=== PATIENT | male | born 1995 | race Caucasian/White ===

== ENCOUNTER 2016-09-17 14:51 | Emergency (ER) | payer OTHER ==
[~2016-09-17] VITALS: Ht 170.1 cm; Wt 113.4 kg
[~2016-09-17 14:51] MED LIST: ALBUTEROL0.09 MG/A2 IH; BACTRIM DS 8001 TA1 PO; CILOXAN 5 ML5 M1 OP; CILOXAN 5 ML5 M1 OT; CILOXAN 5 ML5 ML OPH; FLEXERIL5 MG PO; IBU-8800 MG PO; IBU800 MG PO; IBUPROFEN200 M2 PO; KEFLEX500 M1 PO; KEFLEX500 MG PO; KEFTAB500 MG PO; LOMOTIL 0.025 M1 TA1 PO; MOTRIN800 MG PO; NAPROSYN500 MG PO; NKHM; OMNICEF300 MG PO; PREDNISONE20 M1 PO; SINGULAIR10 MG PO; TOBREX 5 ML5 M1 OP; VICODIN 5/500 505 MG PO; ZOFRAN ODT4 MG SL; ZOFRAN4 MG PO
[2016-09-17 15:51] VITALS: BP 138/70
[2016-09-17 16:16] LABS: BASO # 0.1 10*3/uL (0.0-0.1); BASO % 0.7 % (0.0-1.0); EOS # 0.2 10*3/uL (0.0-0.4); EOS % 2.6 % (1.0-4.0); HEMATOCRIT 41.4 % (42.0-52.0); HEMOGLOBIN 14.3 g/dl (14.0-18.0); LYMPH # 3.4 10*3/uL (1.3-4.4); LYMPH % 40.7 % (27.0-41.0); MEAN CELL VOLUME 83.6 fl (80.0-94.0); MEAN CORPUSCULAR HGB 28.9 pg (27.0-31.0); MEAN CORPUSCULAR HGB CONC 34.5 g/dl (33.0-37.0); MEAN PLATELET VOLUME 9.5 fl (9.6-12.3); MONO % 12.4 % (3.0-9.0); NEUT # 3.6 10*3/uL (2.3-7.9); NEUT % 43.4 % (47.0-73.0); PLATELET COUNT AUTOMATED 239 10*3/uL (130-400); RED BLOOD COUNT 4.95 10*6/uL (4.50-5.90); RED CELL DISTRI WIDTH 13.1 % (0-14.5); WHITE BLOOD COUNT 8.4 10*3/uL (4.8-10.8)
[2016-09-17 16:27] LABS: CHLORIDE 106 mmol/L (98-107); POTASSIUM 3.9 mmol/L (3.5-5.1); SODIUM 137 mmol/L (136-145)
[2016-09-17 16:43] LABS: BUN 14 mg/dl (7-24); CARBON DIOXIDE 27 mmol/L (21-32); EST GLOM FILT AFRICAN AMERICAN > 60 ml/min; GLUCOSE 93 mg/dL (65-99); URIC ACID 6.9 mg/dL (3.5-7.2)
[2016-09-17] MEDS ORDERED: CEPHALEXIN500 M1 PO (17:26)
[2016-09-17] MEDS ORDERED: ATHLETE'S FOOT1% TP (17:26)
== END 2016-09-17 17:40 | disposition home or self-care (01) ==
LOC: ED 14:51
PROVIDERS: Physician Assistant
DX: L03.115 Cellulitis of right lower limb (principal); L03.116 Cellulitis of left lower limb; B35.3 Tinea pedis; F17.200 Nicotine dependence, unspecified, uncomplicated

== ENCOUNTER → 2016-10-04 | Outpatient (CLI) | payer OTHER ==
[~2016-10-04] MED LIST changes: +ATHLETE'S FOOT1% TP; +CEPHALEXIN500 M1 PO; +CORTISPORIN SUS10 ML OT
[2016-10-04 13:26] LABS: BASO # 0.1 10*3/uL (0.0-0.1); BASO % 0.5 % (0.0-1.0); EOS # 0.2 10*3/uL (0.0-0.4); EOS % 2.2 % (1.0-4.0); HEMATOCRIT 40.8 % (42.0-52.0); HEMOGLOBIN 14.1 g/dl (14.0-18.0); LYMPH # 2.5 10*3/uL (1.3-4.4); LYMPH % 24.4 % (27.0-41.0); MEAN CELL VOLUME 82.9 fl (80.0-94.0); MEAN CORPUSCULAR HGB 28.7 pg (27.0-31.0); MEAN CORPUSCULAR HGB CONC 34.6 g/dl (33.0-37.0); MEAN PLATELET VOLUME 9.9 fl (9.6-12.3); MONO # 1.2 10*3/uL (0.1-1.0); MONO % 11.5 % (3.0-9.0); NEUT # 6.1 10*3/uL (2.3-7.9); NEUT % 61.1 % (47.0-73.0); PLATELET COUNT AUTOMATED 247 10*3/uL (130-400); RED BLOOD COUNT 4.92 10*6/uL (4.50-5.90); WHITE BLOOD COUNT 10.1 10*3/uL (4.8-10.8)
[2016-10-04 13:56] LABS: ALBUMIN 3.8 gm/dl (3.1-4.5); ALKALINE PHOSPHATASE 83 U/L (45-117); BILIRUBIN, TOTAL 0.5 mg/dl (0.2-1.0); BUN 15 mg/dl (7-24); CARBON DIOXIDE 26 mmol/L (21-32); CHLORIDE 107 mmol/L (98-107); CHOLESTEROL 181 mg/dL (<200); CPK 56 U/L (39-308); EST GLOM FILT AFRICAN AMERICAN > 60 ml/min; GLUCOSE 88 mg/dL (65-99); HDL CHOLESTEROL 44 mg/dl (40-60); LDL CHOLESTEROL 122 mg/dL (9-159); POTASSIUM 3.9 mmol/L (3.5-5.1); SGOT/AST 13 IU/L (3-35); SGPT/ALT 30 U/L (12-78); SODIUM 140 mmol/L (136-145); TOTAL PROTEIN 7.8 gm/dL (6.4-8.2); TRIGLYCERIDES 75 mg/dl (<150); VLDL CHOLESTEROL 15 mg/dL (6-40)
[2016-10-04 14:18] LABS: VITAMIN D, 25-HYDROXY 22.4 ng/mL (30-100)
[2016-10-05 17:09] LABS: CREATININE, RANDOM URINE 158.7 mg/dL (Not Estab.)
== END | disposition home or self-care (01) ==
LOC: LAB 12:56
PROVIDERS: Pediatrics
DX: I10 Essential (primary) hypertension (principal)

== ENCOUNTER 2016-10-05 16:51 | Emergency (ER) | payer OTHER ==
[~2016-10-05] VITALS: Ht 170.1 cm; Wt 113.4 kg
[~2016-10-05 16:51] MED LIST changes: -CORTISPORIN SUS10 ML OT
[2016-10-05 17:16] VITALS: BP 174/93
[2016-10-05] MEDS ORDERED: CORTISPORIN SUS10 ML OT (18:04)
== END 2016-10-05 19:15 | disposition home or self-care (01) ==
LOC: ED 16:51
DX: H60.501 Unspecified acute noninfective otitis externa, right ear (principal); R03.0 Elevated blood-pressure reading, without diagnosis of hypertension; F17.200 Nicotine dependence, unspecified, uncomplicated

== ENCOUNTER 2017-07-11 20:53 | Emergency (ER) | payer BC ==
[~2017-07-11] VITALS: Ht 170.1 cm; Wt 113.4 kg
[~2017-07-11 20:53] MED LIST changes: +CORTISPORIN SUS10 ML OT
[2017-07-11 20:59] VITALS: BP 157/92
[2017-07-11 21:21] LABS: BASO % 0.2 % (0.0-1.0); EOS # 0.2 10*3/uL (0.0-0.4); EOS % 3.6 % (1.0-4.0); HEMATOCRIT 43.4 % (42.0-52.0); HEMOGLOBIN 15.2 g/dl (14.0-18.0); LYMPH # 1.9 10*3/uL (1.3-4.4); LYMPH % 45.8 % (27.0-41.0); MEAN CORPUSCULAR HGB 29.1 pg (27.0-31.0); MEAN PLATELET VOLUME 10.2 fl (9.6-12.3); MONO # 0.8 10*3/uL (0.1-1.0); MONO % 18.7 % (3.0-9.0); NEUT # 1.3 10*3/uL (2.3-7.9); NEUT % 31.5 % (47.0-73.0); PLATELET COUNT AUTOMATED 181 10*3/uL (130-400); RED BLOOD COUNT 5.23 10*6/uL (4.50-5.90); RED CELL DISTRI WIDTH 13.4 % (0-14.5); WHITE BLOOD COUNT 4.2 10*3/uL (4.8-10.8)
[2017-07-11 21:32] LABS: BUN 15 mg/dl (7-24); CHLORIDE 104 mmol/L (98-107); CREATININE 0.89 mg/dL (0.70-1.30); POTASSIUM 4.1 mmol/L (3.5-5.1); SODIUM 139 mmol/L (136-145)
[2017-07-11] MEDS ORDERED: ROBITUSSIN DM3840 ML PO (22:46)
[2017-07-11] MEDS ORDERED: TAMIFLU 75MG CA75 MG PO (22:46)
[2017-07-11 22:51] LABS: BILIRUBIN NEGATIVE (NEGATIVE); BLOOD NEGATIVE (NEGATIVE); CLARITY SL CLOUDY (CLEAR); COLOR YELLOW (YELLOW); GLUCOSE NEGATIVE (NEGATIVE); KETONE NEGATIVE (NEGATIVE); LEUKO ESTERASE NEGATIVE (NEGATIVE); NITRITE NEGATIVE (NEGATIVE); PH 5.5 (5.0-9.0); SPECIFIC GRAVITY >= 1.030 (1.005-1.030); UROBILINOGEN 0.2 E.U./dl (0.2-1.0)
[2017-07-11] MEDS ORDERED: ZOFRAN ODT4 MG SL (22:55)
[2017-07-11 22:58] LABS: BACTERIA TRACE; EPITHELIAL CELLS 0-2
== END 2017-07-11 23:30 | disposition home or self-care (01) ==
LOC: ED 20:53
PROVIDERS: Emergency Medicine Emergency Medical Services
DX: J40 Bronchitis, not specified as acute or chronic (principal); J10.1 Influenza due to other identified influenza virus with other respiratory manifestations; F17.200 Nicotine dependence, unspecified, uncomplicated; Z98.890 Other specified postprocedural states

== ENCOUNTER 2018-04-26 19:36 | Emergency (ER) | payer BC ==
[~2018-04-26] VITALS: Ht 167.6 cm; Wt 122.5 kg
[~2018-04-26 19:36] MED LIST changes: +ROBITUSSIN DM3840 ML PO; +TAMIFLU 75MG CA75 MG PO
[2018-04-26 19:38] VITALS: BP 130/68
[2018-04-26] MEDS ORDERED: AMOXICILLIN500 M2 PO (20:59)
[2018-04-26] MEDS ORDERED: TESSALON PERLE100 M1 PO (20:59)
[2018-04-26] MEDS ORDERED: PREDNISONE50 MG PO (20:59)
== END 2018-04-26 21:40 | disposition home or self-care (01) ==
LOC: ED 19:36
DX: J20.9 Acute bronchitis, unspecified (principal); R19.7 Diarrhea, unspecified; F17.200 Nicotine dependence, unspecified, uncomplicated

== ENCOUNTER 2018-06-02 12:15 | Emergency (ER) | payer BC ==
[~2018-06-02] VITALS: Ht 167.6 cm; Wt 122.5 kg
[~2018-06-02 12:15] MED LIST changes: +AMOXICILLIN500 M2 PO; +PREDNISONE50 MG PO; +TESSALON PERLE100 M1 PO
[2018-06-02 12:17] VITALS: BP 152/71
== END 2018-06-02 13:10 | disposition home or self-care (01) ==
LOC: ED 12:15
DX: M79.604 Pain in right leg (principal); W01.198A Fall on same level from slipping, tripping and stumbling with subsequent striking against other object, initial encounter; Y93.89 Activity, other specified; Y92.89 Other specified places as the place of occurrence of the external cause; Y99.8 Other external cause status

== ENCOUNTER 2018-12-30 12:59 | Emergency (ER) | payer BC ==
[~2018-12-30] VITALS: Ht 167.6 cm; Wt 113.4 kg
[2018-12-30 13:01] VITALS: BP 158/84
[2018-12-30] MEDS ORDERED: MUCINEX DM 30/61 TAB PO (14:12)
[2018-12-30] MEDS ORDERED: AUGMENTIN 875875 MG PO (14:12)
== END 2018-12-30 14:39 | disposition home or self-care (01) ==
LOC: ED 12:59
DX: J01.90 Acute sinusitis, unspecified (principal); B96.89 Other specified bacterial agents as the cause of diseases classified elsewhere; F17.200 Nicotine dependence, unspecified, uncomplicated

== ENCOUNTER → 2019-03-02 | Outpatient (CLI) | payer BC ==
[~2019-03-02] MED LIST changes: +AUGMENTIN 875875 MG PO; +MUCINEX DM 30/61 TAB PO
== END | disposition home or self-care (01) ==
LOC: CT 04:53
DX: J40 Bronchitis, not specified as acute or chronic (principal); R09.89 Other specified symptoms and signs involving the circulatory and respiratory systems

== ENCOUNTER → 2019-03-03 | Outpatient (CLI) | payer BC ==
--- NOTE | ~2019-03-03 | PF ---
[place], [place] PULMONARY FUNCTION TEST [id number] UN[facility] #: [id number] ROOM: DOCTOR: MARY NEVES MD,FELIPE BIRTHDATE: [birth year] DOS: 03/03/2019 PROCEDURE: Pulmonary function test. ORDERED BY: Yoan Ho. HISTORY: The patient is a 24-year-old male, height of 66 inches, weight of 280 pounds with a diagnosis of bronchitis. Tobacco use noted 1 pack of cigarettes per day for 7 years. SPIROMETRY: The FVC 4.81 liters at 104% predicted value. The FEV1 was 4.09 liters as 85% predicted value. The ratio of FEV1/FVC post-bronchodilator, there were no improvement noted in FEV1 or FVC. Flow volume loop was noted as normal. LUNG VOLUME: Thoracic gas volume recorded as 71%, residual volume 76%, total lung capacity 97%. The patient had resistance and passive conductance noted abnormal, partial improvement post-bronchodilators. Lung diffusion recorded 127%. FINAL IMPRESSION: Finding would be considered consistent with mild reversible obstructive lung disease, bronchial asthma. Clinical correlation would be advised. FELIPE HERNANDEZ MD CM:PFREPORT:PULMONARY FUNCTION TEST [id number] FELIPE NEVES MD
== END | disposition home or self-care (01) ==
LOC: CP 03-02 00:16
DX: J40 Bronchitis, not specified as acute or chronic (principal)

== ENCOUNTER 2019-12-12 19:37 | Emergency (ER) | payer OTHER, BC ==
[~2019-12-12] VITALS: Ht 167.6 cm; Wt 127.0 kg
[2019-12-12 19:45] VITALS: BP 152/94
== END 2019-12-12 21:55 | disposition home or self-care (01) ==
LOC: ED 19:37
DX: S63.502A Unspecified sprain of left wrist, initial encounter (principal); Z79.899 Other long term (current) drug therapy; V43.52XA Car driver injured in collision with other type car in traffic accident, initial encounter; Y93.89 Activity, other specified; Y92.89 Other specified places as the place of occurrence of the external cause; Y99.8 Other external cause status

== ENCOUNTER 2019-12-21 08:43 | Emergency (ER) | payer BC ==
[~2019-12-21] VITALS: Ht 170.1 cm; Wt 127.0 kg
[2019-12-21 08:43] VITALS: BP 148/89
[2019-12-21 09:22] LABS: BASO # 0.1 10*3/uL (0.0-0.1); BASO % 0.5 % (0.0-1.0); EOS # 0.2 10*3/uL (0.0-0.4); EOS % 2.1 % (1.0-4.0); HEMATOCRIT 42.6 % (42.0-52.0); LYMPH % 28.9 % (27.0-41.0); MEAN CELL VOLUME 84.5 fl (80.0-94.0); MEAN CORPUSCULAR HGB CONC 33.1 g/dl (33.0-37.0); MEAN PLATELET VOLUME 9.7 fl (9.6-12.3); MONO % 9.3 % (3.0-9.0); PLATELET COUNT AUTOMATED 279 10*3/uL (130-400); RED BLOOD COUNT 5.04 10*6/uL (4.50-5.90); RED CELL DISTRI WIDTH 13.7 % (0-14.5); WHITE BLOOD COUNT 10.2 10*3/uL (4.8-10.8)
[2019-12-21 09:38] LABS: ALBUMIN 3.8 gm/dl (3.1-4.5); ALKALINE PHOSPHATASE 81 U/L (45-117); BUN 14 mg/dl (7-24); CHLORIDE 106 mmol/L (98-107); CREATININE 0.91 mg/dL (0.70-1.30); LIPASE 49 U/L (73-393); POTASSIUM 3.9 mmol/L (3.5-5.1); SGOT/AST 18 IU/L (3-35); SGPT/ALT 45 U/L (12-78); SODIUM 138 mmol/L (136-145); TOTAL PROTEIN 7.6 gm/dL (6.4-8.2)
[2019-12-21] MEDS ORDERED: NAPROSYN500 MG PO (11:28)
[2019-12-21] MEDS ORDERED: FLOMAX0.4 MG PO (11:28)
[2019-12-21] MEDS ORDERED: TYLENOL325 M1 PO (11:28)
[2019-12-21] MEDS ORDERED: REGLAN10 M1 PO (11:28)
[2019-12-21 11:44] LABS: BILIRUBIN NEGATIVE (NEGATIVE); BLOOD 3+ (NEGATIVE); CLARITY CLOUDY (CLEAR); COLOR BROWN (YELLOW); GLUCOSE NEGATIVE (NEGATIVE); KETONE NEGATIVE (NEGATIVE); LEUKO ESTERASE NEGATIVE (NEGATIVE); NITRITE NEGATIVE (NEGATIVE)
[2019-12-21 11:46] LABS: RBC TNTC rbc/hpf (0-2)
[2019-12-21 11:47] LABS: BACTERIA 3+
== END 2019-12-21 11:33 | disposition home or self-care (01) ==
LOC: ED 08:43
PROVIDERS: Emergency Medicine
DX: K57.92 Diverticulitis of intestine, part unspecified, without perforation or abscess without bleeding (principal); K80.80 Other cholelithiasis without obstruction; N20.0 Calculus of kidney; R11.2 Nausea with vomiting, unspecified; E66.01 Morbid (severe) obesity due to excess calories; I10 Essential (primary) hypertension; F17.200 Nicotine dependence, unspecified, uncomplicated

== ENCOUNTER → 2020-01-01 | Outpatient (CLI) | payer BC ==
[~2020-01-01] MED LIST changes: +FLOMAX0.4 MG PO; +REGLAN10 M1 PO; +TYLENOL325 M1 PO
== END | disposition home or self-care (01) ==
LOC: US 09:57
DX: R10.11 Right upper quadrant pain (principal)

== ENCOUNTER 2020-01-02 23:30 | Emergency (ER) | payer BC ==
[~2020-01-02] VITALS: Ht 167.6 cm; Wt 127.0 kg
[2020-01-02 23:40] VITALS: BP 137/79
[2020-01-03 01:34] LABS: BILIRUBIN NEGATIVE (NEGATIVE); BLOOD 1+ (NEGATIVE); CLARITY CLEAR (CLEAR); COLOR YELLOW (YELLOW); GLUCOSE NEGATIVE (NEGATIVE); KETONE NEGATIVE (NEGATIVE)
[2020-01-03 01:35] LABS: LEUKO ESTERASE NEGATIVE (NEGATIVE); NITRITE NEGATIVE (NEGATIVE); UROBILINOGEN 0.2 E.U./dl (0.2-1.0)
[2020-01-03 01:56] LABS: MUCOUS TRACE; RBC 16-20 rbc/hpf (0-2)
== END 2020-01-03 02:11 | disposition home or self-care (01) ==
LOC: ED 23:30
PROVIDERS: Emergency Medicine Emergency Medical Services
DX: N23 Unspecified renal colic (principal); I10 Essential (primary) hypertension

== ENCOUNTER → 2020-07-01 | Outpatient (CLI) | payer BC ==
[~2020-07-01] MED LIST changes: +NAPROXEN250 MG PO
== END | disposition home or self-care (01) ==
LOC: COVID19 09:06
PROVIDERS: ATTEND Family Medicine
DX: Z20.822 Contact with and (suspected) exposure to COVID-19 (principal)

== ENCOUNTER 2020-08-03 06:34 | Emergency (ER) | payer BC ==
[~2020-08-03] VITALS: Ht 167.6 cm; Wt 127.0 kg
[~2020-08-03 06:34] MED LIST changes: -NAPROXEN250 MG PO
[2020-08-03 06:50] VITALS: BP 169/90
[2020-08-03 07:49] LABS: BASO # 0.1 10*3/uL (0.0-0.1); BASO % 0.7 % (0.0-1.0); EOS # 1.8 10*3/uL (0.0-0.4); EOS % 15.7 % (1.0-4.0); HEMATOCRIT 43.8 % (42.0-52.0); LYMPH % 35.8 % (27.0-41.0); MEAN CELL VOLUME 83.6 fl (80.0-94.0); MEAN CORPUSCULAR HGB 28.6 pg (27.0-31.0); MEAN CORPUSCULAR HGB CONC 34.2 g/dl (33.0-37.0); MEAN PLATELET VOLUME 9.3 fl (9.6-12.3); MONO % 9.3 % (3.0-9.0); NEUT # 4.3 10*3/uL (2.3-7.9); NEUT % 38.2 % (47.0-73.0); PLATELET COUNT AUTOMATED 285 10*3/uL (130-400); RED BLOOD COUNT 5.24 10*6/uL (4.50-5.90); RED CELL DISTRI WIDTH 13.1 % (0-14.5); WHITE BLOOD COUNT 11.2 10*3/uL (4.8-10.8)
[2020-08-03 08:04] LABS: ALBUMIN 3.9 gm/dl (3.1-4.5); ALKALINE PHOSPHATASE 95 U/L (45-117); BUN 18 mg/dl (7-24); CHLORIDE 108 mmol/L (98-107); CREATININE 1.02 mg/dL (0.70-1.30); POTASSIUM 3.7 mmol/L (3.5-5.1); SGOT/AST 14 IU/L (3-35); SGPT/ALT 42 U/L (12-78); SODIUM 140 mmol/L (136-145); TOTAL PROTEIN 7.8 gm/dL (6.4-8.2)
[2020-08-03 08:05] LABS: BILIRUBIN Negative (Negative); BLOOD 1+ (Negative); CLARITY Clear (Clear); COLOR Yellow (Yellow); GLUCOSE Negative (Negative); KETONE 1+ (Negative); LEUKO ESTERASE Negative (Negative); NITRITE Negative (Negative); SPECIFIC GRAVITY 1.025 (1.001-1.030); UROBILINOGEN 0.2 E.U./dl (0.0-1.0)
[2020-08-03 08:18] LABS: MUCOUS TRACE
[2020-08-03] MEDS ORDERED: FLOMAX0.4 MG PO (08:44)
[2020-08-03] MEDS ORDERED: REGLAN10 M1 PO (08:44)
[2020-08-03] MEDS ORDERED: TYLENOL325 M1 PO (08:44)
[2020-08-03] MEDS ORDERED: NAPROXEN250 MG PO (08:44)
== END 2020-08-03 08:52 | disposition home or self-care (01) ==
LOC: ED 06:34
PROVIDERS: Emergency Medicine
DX: K80.80 Other cholelithiasis without obstruction (principal); N23 Unspecified renal colic; E66.9 Obesity, unspecified; F17.200 Nicotine dependence, unspecified, uncomplicated; Z87.442 Personal history of urinary calculi; Z79.899 Other long term (current) drug therapy

== ENCOUNTER 2021-01-21 06:32 | Emergency (ER) | payer SELFPAY ==
[~2021-01-21] VITALS: Ht 167.6 cm; Wt 136.1 kg
[~2021-01-21 06:32] MED LIST changes: +NAPROXEN250 MG PO
[2021-01-21 06:41] VITALS: BP 145/91
[2021-01-21 07:04] LABS: BASO # 0.1 10*3/uL (0.0-0.1); BASO % 0.9 % (0.0-1.0); EOS # 0.5 10*3/uL (0.0-0.4); EOS % 5.1 % (1.0-4.0); LYMPH # 4.3 10*3/uL (1.3-4.4); LYMPH % 42.7 % (27.0-41.0); MEAN CELL VOLUME 82.8 fl (80.0-94.0); MEAN CORPUSCULAR HGB 28.4 pg (27.0-31.0); MEAN CORPUSCULAR HGB CONC 34.3 g/dl (33.0-37.0); MEAN PLATELET VOLUME 9.8 fl (9.6-12.3); MONO # 1.2 10*3/uL (0.1-1.0); MONO % 12.3 % (3.0-9.0); NEUT # 3.9 10*3/uL (2.3-7.9); NEUT % 38.8 % (47.0-73.0); PLATELET COUNT AUTOMATED 317 10*3/uL (130-400); RED BLOOD COUNT 5.07 10*6/uL (4.50-5.90); RED CELL DISTRI WIDTH 13.6 % (0-14.5); WHITE BLOOD COUNT 10.1 10*3/uL (4.8-10.8)
[2021-01-21 07:21] LABS: ALBUMIN 3.6 gm/dl (3.1-4.5); ALKALINE PHOSPHATASE 74 U/L (45-117); BUN 18 mg/dl (7-24); CHLORIDE 107 mmol/L (98-107); CREATININE 0.95 mg/dL (0.70-1.30); LIPASE 88 U/L (73-393); POTASSIUM 3.6 mmol/L (3.5-5.1); SGOT/AST 20 IU/L (3-35); SGPT/ALT 51 U/L (12-78); SODIUM 139 mmol/L (136-145); TOTAL PROTEIN 7.3 gm/dL (6.4-8.2)
[2021-01-21 09:39] LABS: BILIRUBIN Negative (Negative); BLOOD 3+ (Negative); CLARITY Clear (Clear); COLOR Yellow (Yellow); GLUCOSE Negative (Negative); KETONE Trace (Negative); LEUKO ESTERASE Negative (Negative); NITRITE Negative (Negative); PH 5.5 (4.5-8.0); SPECIFIC GRAVITY 1.025 (1.001-1.030)
[2021-01-21 09:48] LABS: BACTERIA 1+; MUCOUS 1+; RBC 41-50 rbc/hpf (0-2)
== END 2021-01-21 09:23 | disposition home or self-care (01) ==
LOC: ED 06:32
PROVIDERS: Emergency Medicine
DX: K80.80 Other cholelithiasis without obstruction (principal); F17.200 Nicotine dependence, unspecified, uncomplicated

== ENCOUNTER 2021-02-15 09:12 | Emergency (ER) | payer BC ==
[~2021-02-15] VITALS: Ht 167.6 cm; Wt 136.1 kg
[2021-02-15 09:18] VITALS: BP 137/82
[2021-02-15 10:03] LABS: BASO # 0.1 10*3/uL (0.0-0.1); BASO % 0.8 % (0.0-1.0); EOS # 0.2 10*3/uL (0.0-0.4); EOS % 2.8 % (1.0-4.0); HEMATOCRIT 44.8 % (42.0-52.0); LYMPH # 2.8 10*3/uL (1.3-4.4); LYMPH % 37.1 % (27.0-41.0); MEAN CELL VOLUME 84.5 fl (80.0-94.0); MEAN CORPUSCULAR HGB 28.3 pg (27.0-31.0); MEAN CORPUSCULAR HGB CONC 33.5 g/dl (33.0-37.0); MEAN PLATELET VOLUME 9.9 fl (9.6-12.3); MONO # 0.7 10*3/uL (0.1-1.0); MONO % 9.6 % (3.0-9.0); NEUT # 3.7 10*3/uL (2.3-7.9); NEUT % 49.4 % (47.0-73.0); PLATELET COUNT AUTOMATED 242 10*3/uL (130-400); RED CELL DISTRI WIDTH 13.2 % (0-14.5); WHITE BLOOD COUNT 7.5 10*3/uL (4.8-10.8)
[2021-02-15 10:18] LABS: ALBUMIN 3.8 gm/dl (3.1-4.5); ALKALINE PHOSPHATASE 72 U/L (45-117); BUN 13 mg/dl (7-24); CHLORIDE 107 mmol/L (98-107); CREATININE 0.81 mg/dL (0.70-1.30); LIPASE 53 U/L (73-393); POTASSIUM 3.9 mmol/L (3.5-5.1); SGOT/AST 24 IU/L (3-35); SGPT/ALT 62 U/L (12-78); SODIUM 138 mmol/L (136-145); TOTAL PROTEIN 7.5 gm/dL (6.4-8.2)
[2021-02-15 11:41] LABS: BILIRUBIN Negative (Negative); BLOOD Negative (Negative); CLARITY Turbid (Clear); COLOR Yellow (Yellow); GLUCOSE Negative (Negative); KETONE Negative (Negative); LEUKO ESTERASE Negative (Negative); NITRITE Negative (Negative)
[2021-02-15 11:56] LABS: PH 8.5 (4.5-8.0)
[2021-02-15 12:18] LABS: BACTERIA 1+; MUCOUS 1+
[2021-03-02] MEDS ORDERED: PERCOCET 5-3251 EACH PO (12:26)
[2021-03-02] MEDS ORDERED: ZOFRAN4 MG PO (12:26)
[2021-03-02] MEDS ORDERED: COLACE100 MG PO (12:26)
== END 2021-02-15 13:01 | disposition home or self-care (01) ==
LOC: ED 09:12
PROVIDERS: Emergency Medicine
DX: K80.50 Calculus of bile duct without cholangitis or cholecystitis without obstruction (principal)

== ENCOUNTER → 2021-03-02 | Day surgery (SDC) | payer BC ==
[2021-02-27 14:17] VITALS: BP 170/92
[~2021-03-02] VITALS: Ht 167.6 cm; Wt 136.1 kg
[~2021-03-02] MED LIST changes: +COLACE100 MG PO; +PERCOCET 5-3251 EACH PO
[2021-03-02 09:45] VITALS: BP 132/82
[2021-03-02 12:43] VITALS: BP 140/72
[2021-03-02 13:00] VITALS: BP 119/77
[2021-03-02 13:30] VITALS: BP 153/75
[2021-03-02 13:42] VITALS: BP 158/79
== END | disposition home or self-care (01) ==
LOC: SDC 02-27 14:00
PROVIDERS: ATTEND Surgery
DX: K80.13 Calculus of gallbladder with acute and chronic cholecystitis with obstruction (principal); I10 Essential (primary) hypertension; F17.210 Nicotine dependence, cigarettes, uncomplicated; Z79.899 Other long term (current) drug therapy; Z20.822 Contact with and (suspected) exposure to COVID-19

== ENCOUNTER 2021-06-06 18:34 | Emergency (ER) | payer BC ==
[~2021-06-06] VITALS: Ht 167.6 cm; Wt 136.1 kg
[2021-06-06 18:50] VITALS: BP 149/90
[2021-06-06] MEDS ORDERED: Motrin,Rufen800 MG PO (20:19)
[2021-06-06] MEDS ORDERED: CEPHALEXIN500 M1 PO ×2 (20:19)
[2021-06-06] MEDS ORDERED: SEPTDS PO (20:19)
== END 2021-06-06 20:20 | disposition home or self-care (01) ==
LOC: ED 18:34
DX: L02.31 Cutaneous abscess of buttock (principal)

== ENCOUNTER 2021-06-08 17:51 | Inpatient (IN) | payer BC ==
[~2021-06-08] VITALS: Ht 167.6 cm; Wt 136.1 kg
[~2021-06-08 17:51] MED LIST changes: +Motrin,Rufen800 MG PO; +SEPTDS PO
[2021-06-08 17:57] VITALS: BP 123/81
[2021-06-08 18:39] LABS: HEMATOCRIT 39.9 % (42.0-52.0); MEAN CELL VOLUME 82.8 fl (80.0-94.0); MEAN CORPUSCULAR HGB 28.4 pg (27.0-31.0); MEAN CORPUSCULAR HGB CONC 34.3 g/dl (33.0-37.0); MEAN PLATELET VOLUME 9.6 fl (9.6-12.3); PLATELET COUNT AUTOMATED 331 10*3/uL (130-400); RED BLOOD COUNT 4.82 10*6/uL (4.50-5.90); WHITE BLOOD COUNT 19.2 10*3/uL (4.8-10.8)
[2021-06-08 18:57] LABS: ALBUMIN 3.9 gm/dl (3.1-4.5); ALKALINE PHOSPHATASE 88 U/L (45-117); BUN 21 mg/dl (7-24); CHLORIDE 108 mmol/L (98-107); CREATININE 1.05 mg/dL (0.70-1.30); SGOT/AST 54 IU/L (3-35); SGPT/ALT 44 U/L (12-78); SODIUM 138 mmol/L (136-145); TOTAL PROTEIN 7.9 gm/dL (6.4-8.2)
[2021-06-08 18:58] LABS: ATYPICAL LYMPHS 1 % (0-0); PLATELET SUFFICIENCY NORMAL (NORMAL); TOTAL CELLS COUNTED 100 #CELLS
[2021-06-08 19:39] VITALS: BP 138/62
[2021-06-09] VITALS (8 sets, daily range): BP systolic 106–141; BP diastolic 59–82
[2021-06-09 07:27] LABS: HEMATOCRIT 35.5 % (42.0-52.0); MEAN CELL VOLUME 85.3 fl (80.0-94.0); MEAN CORPUSCULAR HGB 28.8 pg (27.0-31.0); MEAN CORPUSCULAR HGB CONC 33.8 g/dl (33.0-37.0); MEAN PLATELET VOLUME 9.8 fl (9.6-12.3); PLATELET COUNT AUTOMATED 258 10*3/uL (130-400); RED BLOOD COUNT 4.16 10*6/uL (4.50-5.90); RED CELL DISTRI WIDTH 13.5 % (0-14.5); WHITE BLOOD COUNT 16.2 10*3/uL (4.8-10.8)
[2021-06-09 07:45] LABS: ALKALINE PHOSPHATASE 78 U/L (45-117); BUN 19 mg/dl (7-24); CHLORIDE 111 mmol/L (98-107); SGOT/AST 27 IU/L (3-35); SGPT/ALT 36 U/L (12-78); SODIUM 141 mmol/L (136-145); TOTAL PROTEIN 6.6 gm/dL (6.4-8.2)
[2021-06-09 08:21] LABS: PLATELET SUFFICIENCY NORMAL (NORMAL); TOTAL CELLS COUNTED 100 #CELLS
[2021-06-09] MEDS ORDERED: CLINDAMYCIN HC300 MG PO (17:57)
== END 2021-06-09 18:15 | disposition home or self-care (01) | DRG 872 ==
LOC: ED 17:51 → EDHOLD 20:58
PROVIDERS: Internal Medicine; Physician Assistant; ADMIT Family Medicine; ATTEND Family Medicine
PROC: 0J990ZZ Drainage of Buttock Subcutaneous Tissue and Fascia, Open Approach (ICD-10-PCS; principal; 2021-06-09)
DX: A41.9 Sepsis, unspecified organism (principal); L02.31 Cutaneous abscess of buttock; D64.9 Anemia, unspecified; E87.8 Other disorders of electrolyte and fluid balance, not elsewhere classified; E66.01 Morbid (severe) obesity due to excess calories; R73.9 Hyperglycemia, unspecified; R74.01 Elevation of levels of liver transaminase levels; Z90.49 Acquired absence of other specified parts of digestive tract; Z82.49 Family history of ischemic heart disease and other diseases of the circulatory system; Z79.1 Long term (current) use of non-steroidal anti-inflammatories (NSAID); Z79.899 Other long term (current) drug therapy

== ENCOUNTER 2022-05-29 09:20 | Emergency (ER) | payer BC ==
[~2022-05-29] VITALS: Ht 167.6 cm; Wt 136.1 kg
[~2022-05-29 09:20] MED LIST changes: +CLINDAMYCIN HC300 MG PO
[2022-05-29 09:43] VITALS: BP 143/89
[2022-05-29] MEDS ORDERED: CYCLOBENZAPRINE10 MG PO (10:11)
== END 2022-05-29 10:20 | disposition home or self-care (01) ==
LOC: ED 09:20
DX: S39.012A Strain of muscle, fascia and tendon of lower back, initial encounter (principal); Z90.49 Acquired absence of other specified parts of digestive tract; F17.200 Nicotine dependence, unspecified, uncomplicated; F10.90 Alcohol use, unspecified, uncomplicated; X50.0XXA Overexertion from strenuous movement or load, initial encounter; Y93.89 Activity, other specified; Y92.89 Other specified places as the place of occurrence of the external cause; Y99.0 Civilian activity done for income or pay

== ENCOUNTER 2022-09-26 08:58 | Emergency (ER) | payer BC ==
[~2022-09-26] VITALS: Wt 136.1 kg
[~2022-09-26 08:58] MED LIST changes: +CYCLOBENZAPRINE10 MG PO
[2022-09-26 09:08] VITALS: BP 139/96
[2022-09-26] MEDS ORDERED: METHOCARBAMOL500 M1 PO (10:28)
[2022-09-26] MEDS ORDERED: PREDNISONE20 M1 PO (10:28)
== END 2022-09-26 10:43 | disposition home or self-care (01) ==
LOC: ED 08:58
DX: S39.012A Strain of muscle, fascia and tendon of lower back, initial encounter (principal); I10 Essential (primary) hypertension; Z90.49 Acquired absence of other specified parts of digestive tract; Z98.890 Other specified postprocedural states; Z87.442 Personal history of urinary calculi; F17.200 Nicotine dependence, unspecified, uncomplicated; X50.0XXA Overexertion from strenuous movement or load, initial encounter; Y93.89 Activity, other specified; Y92.89 Other specified places as the place of occurrence of the external cause; Y99.0 Civilian activity done for income or pay

== ENCOUNTER → 2023-02-09 | Outpatient (CLI) | payer BC ==
[~2023-02-09] MED LIST changes: +METHOCARBAMOL500 M1 PO
[2023-02-09 08:49] LABS: BASO # 0.1 10*3/uL (0.0-0.1); BASO % 0.7 % (0.0-1.0); EOS # 0.3 10*3/uL (0.0-0.4); EOS % 2.9 % (1.0-4.0); HEMATOCRIT 43.5 % (42.0-52.0); LYMPH # 3.9 10*3/uL (1.3-4.4); MEAN CELL VOLUME 84.3 fl (80.0-94.0); MEAN CORPUSCULAR HGB 29.5 pg (27.0-31.0); MEAN CORPUSCULAR HGB CONC 34.9 g/dl (33.0-37.0); MEAN PLATELET VOLUME 9.7 fl (9.6-12.3); MONO # 0.8 10*3/uL (0.1-1.0); MONO % 9.8 % (3.0-9.0); NEUT # 3.6 10*3/uL (2.3-7.9); NEUT % 41.5 % (47.0-73.0); PLATELET COUNT AUTOMATED 291 10*3/uL (130-400); RED BLOOD COUNT 5.16 10*6/uL (4.50-5.90); RED CELL DISTRI WIDTH 13.1 % (0-14.5); WHITE BLOOD COUNT 8.6 10*3/uL (4.8-10.8)
[2023-02-09 09:23] LABS: ALKALINE PHOSPHATASE 74 U/L (46-116); BUN 15 mg/dl (9-23); CHLORIDE 109 mmol/L (98-107); CHOLESTEROL 181 mg/dL (<200); LDL CHOLESTEROL 112 mg/dL (9-159); POTASSIUM 3.9 mmol/L (3.4-5.1); SGPT/ALT 39 U/L (10-49); TRIGLYCERIDES 172 mg/dl (<150)
== END | disposition home or self-care (01) ==
LOC: LAB 08:30
PROVIDERS: Nurse Practitioner Family; ATTEND Family Medicine
DX: J20.9 Acute bronchitis, unspecified (principal); R07.9 Chest pain, unspecified